=== PATIENT | male | born 1950 | race African-American/Black ===

== ENCOUNTER 2019-08-30 17:48 | Emergency (ER) | payer MEDICARE, MEDICAID ==
[~2019-08-30] VITALS: Ht 177.8 cm; Wt 90.0 kg
[~2019-08-30 17:48] MED LIST: HYDR-4133 PO; LEVO25TA7 PO
[2019-08-31 04:19] VITALS: BP 128/78
== END 2019-08-31 05:20 | disposition home or self-care (01) ==
LOC: ER 17:48
DX: K94.23 Gastrostomy malfunction (principal); K21.9 Gastro-esophageal reflux disease without esophagitis; I10 Essential (primary) hypertension; E78.00 Pure hypercholesterolemia, unspecified; E03.9 Hypothyroidism, unspecified; Z79.899 Other long term (current) drug therapy
CPT/HCPCS: 43760; 43762; 99284; A4315

== ENCOUNTER 2019-10-03 14:58 | Emergency (ER) | payer MEDICARE, MEDICAID ==
[~2019-10-03] VITALS: Ht 182.9 cm; Wt 113.0 kg
[2019-10-03] MEDS ORDERED: DIATR MEGLU/DIATRIZOATE SOLN 30ML ONE ×2 (18:13→18:16)
[2019-10-03 19:03] LABS: BASOPHILS % 1.1 % (0.0-2.0); EOSINOPHILS % 2.5 % (0.0-5.0); HEMATOCRIT. 48.1 % (42.0-52.0); HEMOGLOBIN. 15.5 g/dL (14.0-18.0); LYMPHOCYTES % 21.2 % (20.0-50.0); MEAN CORPUSCULAR VOLUME 93.5 fL (80.0-94.0); MEAN PLATELET VOLUME 9.3 fl (7.4-10.4); MONOCYTES % 8.3 % (2.0-8.0); NEUTROPHILS % 66.9 % (40.0-76.0); PLATELET 227 x1000/uL (130-400); RED BLOOD CELL COUNT 5.15 mill/uL (4.7-6.1)
[2019-10-03 19:07] LABS: CHLORIDE 107 mEq/L (98-107)
[2019-10-04 00:20] VITALS: BP 127/72
== END 2019-10-04 00:33 ==
LOC: ER 14:58
DX: K94.23 Gastrostomy malfunction (principal); D64.9 Anemia, unspecified; K21.9 Gastro-esophageal reflux disease without esophagitis; E78.00 Pure hypercholesterolemia, unspecified; I10 Essential (primary) hypertension; Z98.890 Other specified postprocedural states
CPT/HCPCS: 36415; 74018; 80053; 85025; 99284; Q9963

== ENCOUNTER 2019-11-22 14:05 | Inpatient (IN) | payer MEDICARE, MEDICAID ==
[~2019-11-22] VITALS: Ht 177.8 cm; Wt 99.8 kg
[~2019-11-22 14:05] MED LIST changes: +HYDR-4133 GT; -HYDR-4133 PO; +LEVO25TA7 GT; -LEVO25TA7 PO
[2019-11-22 16:21] LABS: BASOPHILS % 0.9 % (0.0-2.0); EOSINOPHILS % 3.4 % (0.0-5.0); HEMATOCRIT. 44.7 % (42.0-52.0); HEMOGLOBIN. 14.9 g/dL (14.0-18.0); LYMPHOCYTES % 16.8 % (20.0-50.0); MEAN CORPUSCULAR HEMOGLOBIN 31.2 pg (28.0-32.0); MEAN CORPUSCULAR VOLUME 93.2 fL (80.0-94.0); MEAN PLATELET VOLUME 9.7 fl (7.4-10.4); MONOCYTES % 8.9 % (2.0-8.0); PLATELET 212 x1000/uL (130-400); RED CELL DISTRIBUTION WIDTH 16.8 % (11.6-14.6)
[2019-11-22 16:24] LABS: CHLORIDE 107 mEq/L (98-107)
[2019-11-22 16:25] LABS: INR 1.1; PROTHROMBIN TIME 12.2 sec (9.6-11.0)
[2019-11-22] MEDS ORDERED: ONDANSETRON HCL 4MG/2ML INJ IV PRN (18:30)
[2019-11-22] MEDS ORDERED: ACETAMINOPHEN 325MG TABLET PO PRN (18:30)
[2019-11-22 21:00] VITALS: BP 147/78
[2019-11-22] MEDS: DEXT 5%/0.45% NACL 1000ML 1,000 ML IV SCH (23:17)
[2019-11-23] VITALS: BP 147/94
[2019-11-23 04:00] VITALS: BP 140/80
[2019-11-23] MEDS ORDERED: ATOR10TA69 GT (05:34)
[2019-11-23] MEDS ORDERED: CARV6.2548 GT (05:47)
[2019-11-23] MEDS ORDERED: ASPI-1079 GT (05:47)
[2019-11-23] MEDS ORDERED: LACT-89 GT (05:47)
[2019-11-23] MEDS: DEXT 5%/0.45% NACL 1000ML 1,000 ML IV SCH ×2 (07:50→20:56)
[2019-11-23 08:00] VITALS: BP 103/64
[2019-11-23 12:00] VITALS: BP 100/67
[2019-11-23 16:00] VITALS: BP 123/71
[2019-11-23 18:53] LABS: COLOR URINE DK YELLOW (YELLOW); KETONES URINE NEGATIVE (NEGATIVE); LEUKOCYTE ESTERASE URINE 1+ (NEGATIVE); NITRITE URINE NEGATIVE (NEGATIVE); OCCULT BLOOD URINE NEGATIVE (NEGATIVE); PROTEIN URINE TRACE (NEGATIVE); SPECIFIC GRAVITY URINE 1.024 (1.005-1.030)
[2019-11-23 19:00] LABS: CLARITY URINE SL HAZY (CLEAR)
[2019-11-23 20:00] VITALS: BP 127/75
[2019-11-23] MEDS: ENOXAPARIN 30MG/0.3ML SYR SUBCUT SCH (20:55)
[2019-11-24] VITALS: BP 128/61
[2019-11-24 04:00] VITALS: BP 111/63
[2019-11-24 08:00] VITALS: BP 114/76
[2019-11-24] MEDS: ENOXAPARIN 30MG/0.3ML SYR SUBCUT SCH (08:39)
[2019-11-24] MEDS ORDERED: PANTOPRAZOLE SODIUM 40 MG/VIAL IV SCH (09:00)
[2019-11-24] MEDS: DEXT 5%/0.45% NACL 1000ML 1,000 ML IV SCH (10:29)
[2019-11-24 12:00] VITALS: BP 104/71
[2019-11-24 16:00] VITALS: BP 106/75
[2019-11-24 20:00] VITALS: BP 138/76
== END 2019-11-24 20:45 | DRG 394 ==
LOC: ER 14:32 → 6EST 18:02 → ENRESERV 20:17
PROVIDERS: ADMIT Internal Medicine; ATTEND Internal Medicine
PROC: 0D20XUZ Change Feeding Device in Upper Intestinal Tract, External Approach (ICD-10-PCS; principal; 2019-11-23)
DX: K94.23 Gastrostomy malfunction (principal); E44.0 Moderate protein-calorie malnutrition; I69.351 Hemiplegia and hemiparesis following cerebral infarction affecting right dominant side; R47.01 Aphasia; Y83.3 Surgical operation with formation of external stoma as the cause of abnormal reaction of the patient, or of later complication, without mention of misadventure at the time of the procedure; R47.02 Dysphasia; I10 Essential (primary) hypertension; E78.5 Hyperlipidemia, unspecified; E03.9 Hypothyroidism, unspecified; E66.9 Obesity, unspecified; E78.00 Pure hypercholesterolemia, unspecified; F01.50 Vascular dementia, unspecified severity, without behavioral disturbance, psychotic disturbance, mood disturbance, and anxiety; J44.9 Chronic obstructive pulmonary disease, unspecified; K21.9 Gastro-esophageal reflux disease without esophagitis; Z79.899 Other long term (current) drug therapy; Y92.89 Other specified places as the place of occurrence of the external cause; Z79.82 Long term (current) use of aspirin; Z68.31 Body mass index [BMI] 31.0-31.9, adult
CPT/HCPCS: 36415; 74018; 80053; 81003; 85025; 99285; C9113; J1650

== ENCOUNTER 2021-06-30 13:12 | Inpatient (IN) | payer MEDICARE, MEDICAID ==
[~2021-06-30] VITALS: Ht 177.8 cm; Wt 95.3 kg
[~2021-06-30 13:12] MED LIST changes: +ASPI-1079 GT; +ATOR10TA69 GT; +CARV6.2548 GT; +LACT-89 GT
[2021-06-30 18:55] LABS: BASOPHILS % 0.7 % (0.0-2.0); EOSINOPHILS % 2.7 % (0.0-5.0); HEMATOCRIT. 48.6 % (42.0-52.0); HEMOGLOBIN. 15.7 g/dL (14.0-18.0); LYMPHOCYTES % 23.4 % (20.0-50.0); MEAN CORPUSCULAR HEMOGLOBIN 30.1 pg (28.0-32.0); MEAN CORPUSCULAR VOLUME 93.3 fL (80.0-94.0); MEAN PLATELET VOLUME 10.3 fl (7.4-10.4); MONOCYTES % 9.4 % (2.0-8.0); NEUTROPHILS % 63.8 % (40.0-76.0); PLATELET 234 x1000/uL (130-400); RED BLOOD CELL COUNT 5.21 mill/uL (4.7-6.1); RED CELL DISTRIBUTION WIDTH 16.9 % (11.6-14.6)
[2021-06-30] MEDS ORDERED: HYDROCODONE/ACETAMINOPHEN 5/325MG TABLET PO PRN (19:00)
[2021-06-30] MEDS ORDERED: MAGNESIUM/ALUMINUM HYDROXIDE/SIMETHICONE 30ML UDC PO PRN (19:00)
[2021-06-30] MEDS ORDERED: GUAIFENESIN 200MG/10ML SUGAR FREE UDC PO PRN (19:00)
[2021-06-30] MEDS ORDERED: MORPHINE SULFATE 2 MG/ML CPJ (NOT FOR IM USE) IV PRN (19:00)
[2021-06-30] MEDS ORDERED: IPRATROPIUM/ALBUTEROL 0.5-3(2.5)MG/3ML NEB HHN PRN (19:00)
[2021-06-30] MEDS ORDERED: CLONIDINE 0.1MG TABLET PO PRN (19:00)
[2021-06-30] MEDS ORDERED: LORAZEPAM 2MG/ML CPJ IV PRN (19:00)
[2021-06-30] MEDS ORDERED: DIPHENHYDRAMINE 50MG/ML VIAL IV PRN (19:00)
[2021-06-30] MEDS ORDERED: ONDANSETRON HCL 4MG/2ML INJ IV PRN (19:00)
[2021-06-30] MEDS ORDERED: DOCUSATE SODIUM 100MG CAPSULE PO PRN (19:00)
[2021-06-30] MEDS ORDERED: HYDRALAZINE 20MG/ML VIAL IV PRN (19:00)
[2021-06-30] MEDS ORDERED: ACETAMINOPHEN 325MG TABLET PO PRN (19:00)
[2021-06-30 19:03] LABS: CHLORIDE 108 mEq/L (98-107)
[2021-06-30] MEDS ORDERED: NALOXONE HCL 0.4MG/ML VIAL IV PRN (19:30)
[2021-06-30 19:32] LABS: INR 1.2; PROTHROMBIN TIME 12.9 sec (9.6-11.0)
[2021-06-30] MEDS ORDERED: ENOXAPARIN 40MG/0.4ML SYR SUBCUT SCH (20:00)
[2021-06-30 21:15] VITALS: BP 129/65
[2021-06-30] MEDS: DEXT 5%/0.45% NACL 1000ML 1,000 ML IV SCH (23:51)
[2021-06-30] MEDS: SODIUM CHLORIDE 0.9% INJ 3ML FLUSH IVF SCH (23:52)
[2021-07-01] VITALS: BP 116/62
[2021-07-01 04:00] VITALS: BP 116/62
[2021-07-01] MEDS: SODIUM CHLORIDE 0.9% INJ 3ML FLUSH IVF SCH ×3 (06:14→21:46)
[2021-07-01 07:33] LABS: BASOPHILS % 0.7 % (0.0-2.0); HEMATOCRIT. 45.7 % (42.0-52.0); LYMPHOCYTES % 19.3 % (20.0-50.0); MEAN CORPUSCULAR HEMOGLOBIN 30.4 pg (28.0-32.0); MEAN CORPUSCULAR VOLUME 92.8 fL (80.0-94.0); MEAN PLATELET VOLUME 10.2 fl (7.4-10.4); MONOCYTES % 12.2 % (2.0-8.0); NEUTROPHILS % 64.8 % (40.0-76.0); PLATELET 203 x1000/uL (130-400); RED BLOOD CELL COUNT 4.92 mill/uL (4.7-6.1); RED CELL DISTRIBUTION WIDTH 16.2 % (11.6-14.6)
[2021-07-01 07:44] LABS: CHLORIDE 108 mEq/L (98-107)
[2021-07-01 08:00] VITALS: BP 111/79
[2021-07-01 12:00] VITALS: BP 142/62
[2021-07-01] MEDS ORDERED: DIATR MEGLU/DIATRIZOATE SOLN 30ML ONE (15:58)
[2021-07-01 16:00] VITALS: BP 139/68
[2021-07-01] MEDS: DEXT 5%/0.45% NACL 1000ML 1,000 ML IV SCH (18:54)
[2021-07-01 20:00] VITALS: BP 139/65
[2021-07-01] MEDS: ENOXAPARIN 30MG/0.3ML SYR SUBCUT SCH (21:00)
[2021-07-02] VITALS: BP 129/54
[2021-07-02 04:00] VITALS: BP 131/58
[2021-07-02] MEDS: SODIUM CHLORIDE 0.9% INJ 3ML FLUSH IVF SCH ×3 (05:01→21:12)
[2021-07-02 08:00] VITALS: BP 117/61
[2021-07-02] MEDS: ENOXAPARIN 30MG/0.3ML SYR SUBCUT SCH ×2 (09:00→21:00)
[2021-07-02] MEDS ORDERED: BISACODYL 10MG SUPP PR NR (11:45)
[2021-07-02 16:00] VITALS: BP 132/56
[2021-07-02] MEDS: POLYETHYLENE GLYCOL 3350 (17GM) 1 DOSE PACK PEG SCH (17:33)
[2021-07-02] MEDS: DOCUSATE SODIUM SUGAR FREE 100MG/10ML UDC PEG SCH (17:33)
[2021-07-02 20:00] VITALS: BP 110/65
[2021-07-03] VITALS: BP 121/68
[2021-07-03 04:00] VITALS: BP 129/58
[2021-07-03] MEDS: SODIUM CHLORIDE 0.9% INJ 3ML FLUSH IVF SCH ×3 (05:07→21:23)
[2021-07-03 08:00] VITALS: BP 124/58
[2021-07-03] MEDS: ENOXAPARIN 30MG/0.3ML SYR SUBCUT SCH ×2 (09:00→21:00)
[2021-07-03] MEDS: DOCUSATE SODIUM SUGAR FREE 100MG/10ML UDC PEG SCH ×2 (09:38→18:36)
[2021-07-03] MEDS: POLYETHYLENE GLYCOL 3350 (17GM) 1 DOSE PACK PEG SCH (09:38)
[2021-07-03 12:00] VITALS: BP 121/51
[2021-07-03 16:00] VITALS: BP 121/51
[2021-07-03] MEDS: DEXT 5%/0.45% NACL 1000ML 1,000 ML IV SCH (18:36)
[2021-07-03 20:00] VITALS: BP 129/66
[2021-07-03] MEDS ORDERED: HYDRALAZINE 10 MG in SODIUM CHLORIDE 0.9% 49.5 ML IV PRN (21:45)
[2021-07-04 00:12] VITALS: BP 140/68
[2021-07-04 04:12] VITALS: BP 125/67
[2021-07-04] MEDS: SODIUM CHLORIDE 0.9% INJ 3ML FLUSH IVF SCH ×3 (05:22→21:37)
[2021-07-04 08:00] VITALS: BP 122/62
[2021-07-04] MEDS: ENOXAPARIN 30MG/0.3ML SYR SUBCUT SCH ×2 (09:00→21:00)
[2021-07-04] MEDS: DOCUSATE SODIUM SUGAR FREE 100MG/10ML UDC PEG SCH ×2 (09:15→17:09)
[2021-07-04] MEDS: POLYETHYLENE GLYCOL 3350 (17GM) 1 DOSE PACK PEG SCH (09:15)
[2021-07-04 12:00] VITALS: BP 111/65
[2021-07-04 16:00] VITALS: BP 123/55
[2021-07-04] MEDS: DEXT 5%/0.45% NACL 1000ML 1,000 ML IV SCH (18:01)
[2021-07-04 20:56] VITALS: BP 121/50
[2021-07-05 00:03] VITALS: BP 113/43
[2021-07-05 04:00] VITALS: BP 107/55
[2021-07-05] MEDS: SODIUM CHLORIDE 0.9% INJ 3ML FLUSH IVF SCH ×2 (05:46→14:00)
[2021-07-05] MEDS: ENOXAPARIN 30MG/0.3ML SYR SUBCUT SCH ×2 (09:00→09:41)
[2021-07-05] MEDS: DOCUSATE SODIUM SUGAR FREE 100MG/10ML UDC PEG SCH (09:40)
[2021-07-05] MEDS: POLYETHYLENE GLYCOL 3350 (17GM) 1 DOSE PACK PEG SCH (09:40)
[2021-07-05 11:02] VITALS: BP 99/60
== END 2021-07-05 15:20 | DRG 394 ==
LOC: ER 13:12 → 6EST 18:35 → ENRESERV 20:22
PROVIDERS: ADMIT Internal Medicine; ATTEND Internal Medicine
PROC: 0D20XUZ Change Feeding Device in Upper Intestinal Tract, External Approach (ICD-10-PCS; principal; 2021-06-30)
PROC: 0DJ0XZZ Inspection of Upper Intestinal Tract, External Approach (ICD-10-PCS; 2021-06-30)
DX: K94.23 Gastrostomy malfunction (principal); E46 Unspecified protein-calorie malnutrition; E03.9 Hypothyroidism, unspecified; K56.41 Fecal impaction; I10 Essential (primary) hypertension; E78.5 Hyperlipidemia, unspecified; E78.00 Pure hypercholesterolemia, unspecified; R13.10 Dysphagia, unspecified; Z20.822 Contact with and (suspected) exposure to COVID-19; K21.9 Gastro-esophageal reflux disease without esophagitis; Y83.3 Surgical operation with formation of external stoma as the cause of abnormal reaction of the patient, or of later complication, without mention of misadventure at the time of the procedure; Y92.89 Other specified places as the place of occurrence of the external cause; Z87.891 Personal history of nicotine dependence; Z79.899 Other long term (current) drug therapy; Z79.82 Long term (current) use of aspirin; Z68.30 Body mass index [BMI] 30.0-30.9, adult; I69.30 Unspecified sequelae of cerebral infarction
CPT/HCPCS: 36415; 74018; 80053; 85025; 87426; 93005; 93970; 99285; J1650; J2060; Q9963

== ENCOUNTER 2022-09-17 10:34 | Emergency (ER) | payer MEDICARE, MEDICAID ==
[~2022-09-17] VITALS: Ht 177.8 cm; Wt 93.0 kg
[~2022-09-17 10:34] MED LIST changes: +DOCU-150 PO; +INSU100I28 SQ
[2022-09-18 00:05] VITALS: BP 128/72
== END 2022-09-18 00:24 ==
LOC: ER 10:38
DX: K94.23 Gastrostomy malfunction (principal); D64.9 Anemia, unspecified; K21.9 Gastro-esophageal reflux disease without esophagitis; E78.00 Pure hypercholesterolemia, unspecified; I10 Essential (primary) hypertension; Z86.73 Personal history of transient ischemic attack (TIA), and cerebral infarction without residual deficits; Z79.899 Other long term (current) drug therapy
CPT/HCPCS: 43762; 99284